=== PATIENT | male | born 1980 | race Hispanic/Latino ===

== ENCOUNTER 2025-04-02 09:34 | Emergency (ER) | payer SELFPAY ==
[~2025-04-02] VITALS: Ht 172.7 cm; Wt 90.7 kg
[2025-04-02 09:55] VITALS: TEMP 98.1
[2025-04-02 10:23] LABS: IMMATURE GRANULOCYTE ABSOLUTE 0.03 K/uL (0-1); NUCLEATED RED BLOOD CELLS 0.0 % (0.0-0.19); PLATELET COUNT (AUTO) 276 K/uL (130-400); RED BLOOD CELL COUNT(AUTO) 4.56 MIL/uL (4.50-6.20); RED CELL DISTRIBUTION WIDTH 16.1 % (11.0-15.5); WHITE BLOOD COUNT (AUTO) 10.5 K/uL (4.8-10.8)
[2025-04-02 10:38] LABS: ASPARTATE AMINOTRANSFERASE 68.0 U/L (10-37); CREATINE KINASE, TOTAL 129.0 U/L (21-232); CREATININE 1.4 mg/dL (0.5-1.3); GLOMERULAR FILTR. RATE CALC 64.0 mL/min (>90); GLUCOSE,RANDOM 97.0 mg/dL (70-105); SODIUM SERUM 135.0 mmol/L (136-145); TOTAL PROTEIN, SERUM 7.4 g/dL (6.0-8.3); UREA NITROGEN, BLOOD 6.0 mg/dL (7-18)
--- NOTE | 2025-04-02 11:13 | EKG ---
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
--- NOTE | 2025-04-02 11:22 | NUR ---
PT STILL IN WAITING ROOM. PENDING ED BED
--- NOTE | 2025-04-02 11:57 | NUR ---
PT MOVED INTO ER BED18 AT THIS TIME.
[2025-04-02 13:21] VITALS: PULSE 81; RESP 20; O2SAT 99
[2025-04-02] MEDS ORDERED: CLON0.1T PO (13:23)
--- NOTE | 2025-04-02 13:23 | ERN ---
ED Note History of Present Illness Stated Complaint: DIZZINES, ELEVATED BP Chief Complaint: Dizzy/Light Headed Time Seen by MD: 09:48 Dictation: 44-year-old male presenting to the emergency department with dizziness and elevated blood pressure patient sees his primary care doctor in clinic however says that his blood pressure medicine has not been working no chest pain no shortness a breath similar episodes in the past. Allergies: Coded Allergies: No Known Allergies (Unverified Allergy, Unknown, 04/02/25) Past Medical History Past Medical History: Asthma, GERD, Heart Disease, Hypertension Surgical History: Other Surgical History Other: WRIST, SKIN Review of System Dictation Constitutional: Negative for fever,chills, and weight loss Eyes: Negative for injury, pain,redness, and discharge ENT: Negative for injury,pain or swelling Cardiovascular: Negative for chest pain, palpitations, and edema Respiratory: Negative for shortness of breath, cough, and wheezing, Abdomen/GI: Negative for abdominal pain, nausea, vomiting, diarrhea, and constipation Back: Negative for injury and pain : Negative for injury, bleeding and discharge MS/Extremity: Negative for injury and deformity Skin: Negative for rash, and discoloration Neuro: Per HPI Initial Vital Sign VS Vital Signs Date Time Temp Pulse Resp B/P (MAP) Pulse Ox O2 Delivery O2 Flow Rate FiO2 04/02/25 09:36 98.1 94 16 196/130 99 Room Air 0 04/02/25 09:55 21 Physical Exam Dictation General: awake, alert, NAD Head/Face: Normocephalic, atraumatic Eyes: PERRL, EOMI, vision at baseline ENT: oral cavity clear, TMs clear, no signs of infection Neck: Trachea midline, supple, no nuchal rigidity Cardiovascular: RRR, normal S1/S2, No MRGs, no JVD Respiratory: CTAB, no respiratory distress, No rales or wheezes Abdomen: Soft, non-tender, non-distended, normal bowel sounds, no guarding or rebound. Skin: Warm, dry, normal turgor, no rash MS/Extremity: Pulses equal, no cyanosis, neurovascular intact, FROM Neuro: COAx4, GCS 15, strength 5/5, CN 2-12 intact, normal cerebellar exam, normal gait, Psych: Normal behavior, mood, and affect normal Results (Laboratory/Radiology) Laboratory/Radiology Laboratory Tests Test 04/02/25 10:13 White Blood Count 10.5 K/uL (4.8-10.8) Red Blood Count 4.56 MIL/uL (4.50-6.20) Hemoglobin 16.8 g/dL (14.0-18.0) Hematocrit 47.0 % (42-54) Mean Corpuscular Volume 103.1 fL (79-99) H Mean Corpuscular Hemoglobin 36.8 pg (27.0-33.0) H Mean Corpuscular Hemoglobin Concent 35.7 g/dL (32.0-36.0) Red Cell Distribution Width 16.1 % (11.0-15.5) H Platelet Count 276 K/uL (130-400) Mean Platelet Volume 9.4 fL (7.5-10.5) Immature Granulocyte % (Auto) 0.3 % (0-1) Neutrophils (%) (Auto) 68.5 % (40.0-77.0) Lymphocytes (%) (Auto) 20.5 % (21.0-51.0) L Monocytes (%) (Auto) 8.7 % (3.0-13.0) Eosinophils (%) (Auto) 1.6 % (0.0-8.0) Basophils (%) (Auto) 0.4 % (0.0-5.0) Neutrophils # (Auto) 7.2 K/uL (1.8-7.7) Lymphocytes # (Auto) 2.2 K/uL (1.0-4.8) Monocytes # (Auto) 0.9 K/uL (0.1-1.0) Eosinophils # (Auto) 0.17 K/uL (0.00-0.70) Basophils # (Auto) 0.04 K/uL (0.00-0.20) Absolute Immature Granulocyte (auto 0.03 K/uL (0-1) Nucleated Red Blood Cells 0.0 % (0.0-0.19) Sodium Level 135 mmol/L (136-145) L Potassium Level 3.9 mmol/L (3.5-5.1) Chloride Level 98 mmol/L (101-111) L Carbon Dioxide Level 32 mmol/L (21-32) Blood Urea Nitrogen 6 mg/dL (7-18) L Creatinine 1.4 mg/dL (0.5-1.3) H Glomerular Filtration Rate Calc 64 mL/min (>90) Random Glucose 97 mg/dL (70-105) Total Calcium 8.5 mg/dL (8.5-10.1) Total Bilirubin 1.0 mg/dL (0.2-1.0) Direct Bilirubin 0.2 mg/dL (0.0-0.3) Aspartate Amino Transf (AST/SGOT) 68 U/L (10-37) H Alanine Aminotransferase (ALT/SGPT) 63 U/L (12-78) Alkaline Phosphatase 122 U/L (50-136) Total Creatine Kinase 129 U/L (21-232) Troponin I High Sensitivity 8 ng/L (4-75) Total Protein 7.4 g/dL (6.0-8.3) Albumin 3.7 g/dL (3.5-5.0) Labs Reviewed?: Yes EKG Comment: Heart rate 83, normal sinus rhythm normal intervals no STEMI ED Course ED Course Orders Procedure Category Date Status Time 12 Lead Ekg Tracing- EKG 04/02/25 Resulted Technical 09:49 Basic Metabolic Panel LAB 04/02/25 Complete 09:49 Cbc With Differential LAB 04/02/25 Complete 09:49 Hepatic Function Panel LAB 04/02/25 Complete 09:49 Creatine Kinase, Total LAB 04/02/25 Complete 09:49 Troponin I High LAB 04/02/25 Complete Sensitivity 09:49 Nifedipine PHA 04/02/25 Complete (Nifedipine) 10:30 Clonidine Hcl 0.2 Mg PHA 04/02/25 Complete Tablet (Catapres 0. 11:30 Current Medications Medications (Trade) Dose Ordered Sig/Laurent Route PRN Reason Start Time Stop Time Status Last Admin Dose Admin Clonidine HCl (CATApres 0.2 MG TAB) 0.2 mg ONCE STAT PO 04/02/25 11:30 04/02/25 11:31 DC 04/02/25 12:04 Nifedipine (nifeDIPine) 10 mg ONCE ONCE PO 04/02/25 10:30 04/02/25 10:21 DC Vital Signs Date Time Temp Pulse Resp B/P (MAP) Pulse Ox O2 Delivery O2 Flow Rate FiO2 04/02/25 12:04 84 184/129 04/02/25 12:00 82 20 184/129 98 Room Air* 0 21 04/02/25 09:55 98.1 90 16 196/130 100 Room Air* 0 21 04/02/25 09:36 98.1 94 16 196/130 99 Room Air 0 Medical Decision Making MDM MDM: Differential diagnosis: Rationale: Tests considered and ordered secondary to shared decision making include: Previous outside records reviewed: Old ER visits. Risk of complication and/or morbidity or mortality of patient management: None Medications-Per medication reconciliation Need for hospitalization: Patient does not meet criteria for hospitalization. Need for emergency major/minor surgery: No There are no social concerns with this patient. Prescription drug management Prescriptions will include symptomatic care Patient's prior external medical records from other ER visits were reviewed by me as indicated. Prior testing and results from previous visits were reviewed. Prior tests were taken into account with medical decision making and resource utilization, independent historian/historians were used to obtain complete medical history. I independently interpreted the test that were performed, results were reviewed by me and considered findings on radiology if ordered. Medical management and examination interpretation discussions were had by me with other qualified healthcare professionals as indicated for the patient's care. 44-year-old male with hypertensive episode and dizziness stable exam symptoms improved medication stable for discharge. DX & DISP Disposition: Discharge Departure Impression: Primary Impression: Dizziness Additional Impression: Hypertension Condition: Stable Scripts Clonidine HCl (Clonidine HCl) 0.1 Mg Tablet 0.1 MG PO DAILY for 10 Days, #10 TAB Prov: LOUISE RILEY MD 04/02/25 Referrals: SELF,REFERRAL (PCP) LOUISE RILEY MD Apr 02, 2025 13:23
[2025-04-02 14:12] VITALS: BP 156/111
== END 2025-04-02 14:13 | disposition home or self-care (01) ==
LOC: EDH 09:34
DX: R42 Dizziness and giddiness (principal); I11.9 Hypertensive heart disease without heart failure; J45.909 Unspecified asthma, uncomplicated
CPT/HCPCS: 36415; 80048; 80076; 82550; 84484; 85025; 93005; 99284